=== PATIENT | female | born 1985 | race Caucasian/White ===

== ENCOUNTER 2022-04-24 07:58 | Outpatient (CLI) | payer OTHER, SELFPAY ==
[2022-04-24 11:30] LABS: Cholesterol* 158 mg/dL (90-199)
[2022-04-24 11:31] LABS: Glucose* 85 mg/dL (60-115); HDL Cholesterol* 55 mg/dL (>=50); LDL Cholesterol Calculated 94 mg/dL (<100); Triglycerides* 45 mg/dL (40-149)
[2022-04-26 11:59] LABS: Albumin* 4.3 g/dL (3.3-5.0)
[2022-04-26 12:00] LABS: Chloride* 108 mmol/L (96-114); Potassium* 4.5 mmol/L (3.6-5.1); Sodium* 140 mmol/L (135-149)
[2022-04-26 12:02] LABS: Aspartate Amino Transferase* 23 U/L (12-35); Bilirubin Total* 1.3 mg/dL (0.1-1.5); Carbon Dioxide* 24 mmol/L (20-32); Creatinine* 0.6 mg/dL (0.5-1.5); Estimated Glomerular Filt Rate 118 ml/min
[2022-04-26 12:03] LABS: Alanine Aminotransferase* 13 U/L (4-35); Alkaline Phosphatase* 45 U/L (40-150); Blood Urea Nitrogen* 13 mg/dL (5-24); Calcium* 8.8 mg/dL (8.4-10.6)
[2022-04-26 12:52] LABS: Vitamin B12* 255 pg/mL (243-894)
[2022-04-26 12:53] LABS: Ferritin* 14.3 ng/mL (6.24-137.0)
== END 2022-04-24 07:59 | disposition home or self-care (01) ==
LOC: NFLDREF 07:59
PROVIDERS: PCP Family Medicine; Visit Provider Family Medicine
DX: Z01.419 Encounter for gynecological examination (general) (routine) without abnormal findings (principal); L65.9 Nonscarring hair loss, unspecified; Z13.6 Encounter for screening for cardiovascular disorders; Z79.899 Other long term (current) drug therapy
CPT/HCPCS: 80053; 80061; 82607; 82728; 82947; 84443